=== PATIENT | female | born 1945 ===

== ENCOUNTER 2024-07-25 06:00 | Outpatient (RCR) | payer MEDICARE, SELFPAY | END 2024-08-07 23:59 | disposition home or self-care (01) | LOC: MPT 06:00 | PROVIDERS: Visit Provider Family Medicine | DX: M84.48XD Pathological fracture, other site, subsequent encounter for fracture with routine healing (principal) | CPT/HCPCS: 97110; 97162 ==

== ENCOUNTER 2024-08-08 06:30 | Outpatient (RCR) | payer MEDICARE, SELFPAY | END 2024-09-07 23:59 | disposition home or self-care (01) | LOC: MPT 06:30 | PROVIDERS: Visit Provider Family Medicine | DX: M84.48XD Pathological fracture, other site, subsequent encounter for fracture with routine healing (principal) | CPT/HCPCS: 97110; 97112 ==